=== PATIENT | female | born 1965 | race Caucasian/White ===

== ENCOUNTER 2023-10-22 10:30 | Day surgery (SDC) | payer OTHER ==
[~2023-10-22] VITALS: Wt 75.9 kg
[~2023-10-22 10:30] MED LIST: ADDERALL 5 MG TA5 MG PO; IBLOOD GLUCOSE TEST STRIP 1 EA TEST VI PRN; LACTATED RINGER'S 1,000 ML IV SCH; LIDOCAINE HCL 1% 5 ML SDV INJ ONE; SYNTHROID25 MCG PO
[2023-10-22 10:48] VITALS: BP 105/61
[2023-10-22 11:27] LABS: BASOPHILS 0.4 % (0-2); EOSINOPHILS 1.1 % (0-6); HEMATOCRIT 25.4 % (35.0-50.0); HEMOGLOBIN 8.5 g/dL (12.0-18.0); LYMPHOCYTES 36.5 % (24-44); MCH 30.2 (27-36); MCHC 33.6 g/dl (30-36); MCV 90.1 fl (81-99); PLATELET COUNT 216 K/uL (140-440); RBC 2.82 M/ul (4.3-5.7); RDW 19.6 (10.5-15.0)
[2023-10-22] MEDS ORDERED: LIDOCAINE HCL 2% 5 ML SDV ONE (11:50)
[2023-10-22] MEDS ORDERED: propofoL 200 MG/20 ML VIAL ONE (11:50)
[2023-10-22 12:44] VITALS: BP 100/62
--- NOTE | 2023-10-22 12:51 | NUR ---
10/22/23 1251 Jaja Randall 1214 PT TO PACU IN PRONE POSITIONS, PT RESPONDS TO VERBAL STIMULI, FANNY RN AT BED WITH HARESH CUTTER TO CUT OFF PTS ERIK FUNES AT PTS REQUEST. SHE WAS NOT ABLE TO CUT IT OFF DUE TO BLADE BEING TO SHORT. 1230 PT ROLLED OVER ONTO HER BACK WITH OUT ASSIST.
--- NOTE | 2023-10-30 17:58 | PATH ---
[facility] [address] [facility] [place], [place] [address] Signed SPECIMEN(S): A BONE MARROW - LEFT CORE SPECIMEN(S): B BONE MARROW - ASPIRATION SPECIMEN(S): C FLOW CYTOMETRY, BM EDTA CLINICAL HISTORY: 58-year-old woman with Waldenstrom's macroglobulinemia. DIAGNOSIS SUMMARY: Peripheral blood - Normocytic anemia with leukopenia. - No circulating atypical lymphocytes are identified. Bone marrow biopsy and aspiration: - Hypercellular marrow, 95% with less than 1% blasts - Bone marrow essentially replaced by marked lymphocytosis with features consistent with low grade B-cell lymphoma, favor lymphoplasmacytic lymphoma. - Decreased erythroid, myeloid, and megakaryocytic lineages. - Mild reticulin fibrosis, MF-1. - See diagnostic comment. DIAGNOSTIC COMMENT: The bone marrow is essentially replaced by a lambda light chain restricted, low grade B-cell lymphoma, most consistent with lymphoplasmacytic lymphoma. A MYD88 mutation is positive supporting this impression. Pending studies include a FISH panel for low grade B-cell lymphoma and a mutation study for CXCR4. [facility] HISTORICAL SUMMARY: 58 yo female with no hematology case history in the [employer] database. She has a clinical history of Waldenstrom's macroglobulinemia. The accompanying clinical history notes a 2015 history of elevated serum IgM (3843 mg/dl) with a bone marrow abbreviated report noting a lambda restricted B-cell population, negative for CD5 and CD10 while positive for CD138 (30% of population, positive for lambda light chain). MYD88 mutation was reported as positive. A laboratory test from August 2023 is reported with an elevated serum IgM of 3946 mg/dl. This bone marrow is for re-staging. PERIPHERAL BLOOD: HEMOGRAM (04/23/2023): WBC 2.6 K/ul, RBC 2.82 M/ul, HGB 8.5 g/dl, HCT 25.4%, MCV 90.1 fl, MCH 30.2 pg, MCHC 33.6 g/dl, RDW 19.6%, PLT 216 K/ul, MPV 6.3 fl. PATIENT NAME: MANDI OWENS PATHOLOGY DATE OF : 63 REPORT #: [id number] PHYSICIAN: DINA ARAUJO PCP: ROBERTO AVILA REPORT IS CONFIDENTIAL AND NOT TO BE RELEASED WITHOUT AUTHORIZATION [facility] [address] [place], [place] [address] Signed AUTOMATED DIFFERENTIAL COUNT: Neutrophils 54.0%, lymphocytes 36.5%, monocytes 8.0%, eosinophils 1.1%, basophils 0.4%. The red blood cells are normocytic and normochromic with minimal aniso-poikilocytosis. The neutrophils are unremarkable. Lymphocytes are composed of small mature appearing forms. Platelets appear normal in number and morphology with no platelet clumping or RBC microangiopathic effect identified. No blasts are identified. BONE MARROW: ASPIRATE SMEARS/TOUCH IMPRINT: The aspirate smears are hemodilute with no marrow spicules and are inadequate for evaluation. No touch prep smears are present. A differential based on a core biopsy section reveals 95% lymphocytes and 5% mixed neutrophils and erythroid cells. Sparse megakaryocytes are noted. BONE MARROW CORE BIOPSY/ASPIRATE CLOT/CELL BLOCK: The aspirate clot section is composed of blood only. The core biopsy is adequate for evaluation. The core biopsy demonstrates unremarkable trabecular bone. The cellularity is increased for age, estimated at 95%. The cellularity is primarily composed of small mature appearing lymphocytes. The rare erythroid precursors are within normal limits with essentially unremarkable maturation. The very rare myeloid precursors are unremarkable with no significant dyspoiesis. Blasts are not increased. Megakaryocytes are very sparse in numbers. No granulomas or foreign malignant cells are detected. SPECIAL STAINS (with adequate controls): - iron (aspirate smear): No marrow spicules are present for evaluation of marrow iron stores. - iron (cell block): No marrow spicules are present for evaluation of marrow iron stores. - reticulin (block A1): Mild reticulin fibrosis, MF-1 IMMUNOHISTOCHEMISTRY STAINS (performed on block A1 with adequate controls). - PAX5: Diffuse positive. - CD20: Diffuse positive - CD3: scattered 5% marking. - CD5: scattered 5% marking. - CD10: Negative. - Cyclin D: Negative - CD30: Negative - BCL2: Diffuse positive. FLOW CYTOMETRY: PATIENT NAME: MANDI OWENS PATHOLOGY DATE OF : 63 REPORT #: [id number] PHYSICIAN: DINA PATHOLOGY PCP: ROBERTO AVILA REPORT IS CONFIDENTIAL AND NOT TO BE RELEASED WITHOUT AUTHORIZATION [facility] [address] [place], [place] [address] Signed Bone marrow, flow cytometry: - CD5 negative, CD10 negative, lambda restricted B-cell lymphoproliferative disorder. - See comment. COMMENT: 36% of all gated cells are lambda restricted B-cells. These B-cells are positive for CD19, CD20 (dim), CD22, CD123, and CD200. There is no significant expression of CD5, CD10, CD23, CD11c, CD25, or CD103. This pattern of marking is consistent with the patient's prior history of Lymphoplasmacytic lymphoma (Waldenstrom's). The plasma cell gate notes a small population 0.2%, of lambda restricted plasma cells positive for CD138 and CD19 with no expression of CD20 or CD56. Correlation with bone marrow finding is needed. In addition, there is a second atypical B-cell population occupying approximately 3% of the overall population. This B-cell population is positive for CD19, CD20 (dim), and CD5 (dim) with moderate kappa light chain restriction. This likely represents a separate monoclonal B-cell lymphocytosis. Blasts are not increased. The myeloid and monocyte irvin are unremarkable. FLOW CYTOMETRY ANALYSIS: FLOW DIFFERENTIAL (% Total CD45 vs. SSC gating): Myeloid 29%; Lymphoid 59%; Monocyte 2%; Dim CD45/Blast: 0.1%. Cell Count: 1.8 x 10*3/uL. POPULATION ANALYSIS: BLASTS: Analysis of the dim CD45 gate demonstrates 0.1% myeloblasts by CD34/CD117 and 0.1% hematogones. LYMPHOID CELLS: The lymphocyte gate comprises 59% of total events and includes 21% T-cells with a CD4:CD8 ratio of 1.8:1 and normal reyes T-cell antigen expression. Two distinct B-cell populations are detected. The first, 1) is comprised of lambda-restricted B-cells (61% of lymphocytes, 36% of total events) expressing CD45 MOD, CD19 MOD, CD20 DIM, LAMBDA MOD, CD138 DIM-MOD, CD22 DIM, CD123 DIM, and CD200 DIM (partial) while negative for CD5, CD10, CD23, CD38, CD56, CD11c, CD25, CD103, and CD2. The second, 2) is comprised of kappa-restricted B-cells (5% of lymphocytes, 3% of total events) expressing CD45 MOD, CD19 MOD, CD20 DIM, CD5 DIM, KAPPA MOD, CD22 DIM, CD200 DIM (partial), and CD123 DIM (subset NEG) while negative for CD10, CD23, CD38, CD138, CD56, CD11c, CD25, CD103, CD138, CD56, CD11c, CD25, CD103, and CD2. The remainders are NK-cells. MYELOID CELLS: The myeloid population comprises 29% of the total events. PATIENT NAME: MANDI OWENS PATHOLOGY DATE OF : 63 REPORT #: [id number] PHYSICIAN: DINA ARAUJO PCP: ROBERTO AVILA REPORT IS CONFIDENTIAL AND NOT TO BE RELEASED WITHOUT AUTHORIZATION [facility] [address] [place], [place] [address] Signed Changes suggestive of hemodilution are observed. MONOCYTES: The monocyte population comprises 2% of the total events. Monocytes are not increased. No aberrant immunophenotypic expression is detected. PLASMA CELLS: A clinical history of lymphoplasmacytic lymphoma is noted. For this reason, select additional antibodies are run to further characterize the plasma cells. 0.2% clambda-restricted plasma cells are detected (n=36) expressing CD45 DIM, CD38 MOD, CD138 DIM, CD19 (variable), and cLAMBDA BR while negative for CD20 and CD56. Initial Antibodies Used: KAPPA, LAMBDA, CD20, CD10, CD19, CD23, CD38, CD16, CD56, CD8, CD5, CD2, CD4, CD7, CD3, CD14, CD33, CD13, HLADR, CD34, CD117, CD15, CD45. Additional Antibodies (necessary for further classification of the B-lymphocytes): CD103, CD11c, CD25, CD22, CD123. Additional Antibodies (necessary for further plasma cell analysis): ckappa, clambda, CD138. Total Antibodies Used: 31. JNB FINAL DIAGNOSIS PERFORMED BY: Lopez Olsen MD, Oct 24 2023 12:14PM FISH ANALYSIS: A FISH panel for low grade B-cell lymphoma is pending. MOLECULAR / PCR: A PCR test for CXCR4 is pending. 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 MYD88 is rarely mutated in the germinal center B-cell-like (GCB) DLBL, therefore, it can be used to differentiate between the two subtypes. MYD88 mutation is detected in approximately 90% of cases of Waldenstrom macroglobulinemia/lymphoplasmacytic lymphoma. MYD88 mutation analysis can be a useful prognostic tool for patients with IgM-MGUS since the L265P mutation is associated with a higher risk of disease progression and a greater disease burden. MYD88 mutation has also been reported to be common (40%) in central nervous system lymphoma. Methodology: DNA was extracted from cells or paraffin-embedded tissues (FFPE). PATIENT NAME: MANDI OWENS PATHOLOGY DATE OF : 63 REPORT #: [id number] PHYSICIAN: DINA ARAUJO PCP: ROBERTO AVILA REPORT IS CONFIDENTIAL AND NOT TO BE RELEASED WITHOUT AUTHORIZATION [address] [address] Signed Bi-directional Emily sequencing of the L265P mutation in exon 5 of MYD88 was performed. This is a high sensitivity sequencing-based assay using enrichment of mutant allele and negative selection of wild type by locked nucleic acid ([employer]). The assay has a sensitivity of 0.5% for detecting the L265P mutation in a wild-type background. Various factors including quantity and quality of nucleic acid, sample preparation, and sample age can affect assay performance. References: 1. Radha SP, Volodymyr L, Misael ML, Floyd C, et al. Genomic Landscape of Waldenstrom Macroglobulinemia and Its Impact on Treatment Strategies. J Clin Oncol. 2020;38(11):3319-1623. PMID: 83781702. 2. Delia X, Judith W, Benito Q,et al. MYD88 L265P Mutation in Lymphoid Malignancies. Cancer Res. 2018;78(10):1626-3949. PMID: 45755316. Test/Panel [facility] AMA CPT MYD88 Mutation Analysis [id number] The Accessioning Component, Technical Component Processing and Professional Component of this test was completed at [facility], [address] [place] [address] / [address] / [phone] / CLIA # [id number] / University Relations Recruiter(s): Brown Landeros M.D. The Technical Component Analysis of this test was completed at [facility], [address] [place] [address], [address], [place], [place] / [address] / [phone] / CLIA # [id number] / University Relations Recruiter(s): Lindy Helm M.D. Interpretation Code(s): [id number] (Accession/CaseNo: [id number]) The performance characteristics of this test have been determined by [facility]. This test has not been approved by the FDA. The FDA has determined such clearance or approval is not necessary. This laboratory is CLIA certified to perform high complexity clinical testing. Images that may be included within this report are retail field representative of the patient but not all testing in its entirety and should not be used to render a result. The CPT codes provided with our test descriptions are based on [employer] and AMA guidelines and are for informational purposes only. Correct CPT coding is the sole responsibility of the billing constitution party. Please direct any questions regarding coding to the payer being billed. GROSS DESCRIPTION: Two specimens are received in two containers PATIENT NAME: MANDI OWENS PATHOLOGY DATE OF : 63 REPORT #: [id number] PHYSICIAN: DINA ARAUJO PCP: ROBERTO AVILA REPORT IS CONFIDENTIAL AND NOT TO BE RELEASED WITHOUT AUTHORIZATION [facility] [address] [place], [place] [address] Signed A. The specimen, labeled and designated "Manoj, bone marrow biopsy," is received in formalin and consists of one pond cylindrical core of bone that is 1.5 cm long and 0.2 cm in diameter. After decalcification in Immunocal the specimen is entirely submitted in (A1). B. The specimen, labeled and designated "Manoj, bone marrow clot," is received in formalin and consists of a 2.2 x 0.8 x 0.7 cm aggregate of red brown clot material. Entirely submitted in (B1). JS (under the direct supervision of a pathologist) The Gross Description was prepared using a voice recognition system. The report was reviewed for accuracy; however, sound-alike word errors, addition and/or deletions may occur. If there is any question about this report, please contact Client Services. ADDITIONAL NOTES: Immunohistochemical and/or in situ hybridization studies if performed in this case included appropriate positive controls that reacted as expected. This test was developed and its performance characteristics determined by [facility]. It has not been cleared or approved by the U.S. Food and Drug Administration. The FDA has determined that such clearance or approval is not necessary. This test is used for clinical purposes. It should not be regarded as investigational or for research. [facility] is certified under the Clinical Laboratory Improvement Amendments of 1988 (CLIA) as qualified to perform high complexity clinical laboratory testing. In this case, certain antibodies were performed by both immunohistochemistry and flow cytometry analysis because flow cytometry analysis did not fully explain all the light microscopic findings. Immunohistochemistry aided in the analysis. Both methods are deemed medically necessary in this case. This test was developed and its performance characteristics determined by [facility]. It has not been cleared or approved by the US Food and Drug Administration. The FDA does not require this test to go through premarket FDA review. This test is used for clinical purposes. It should not be regarded as investigational or for research. This laboratory is certified under the Clinical Laboratory Improvement Amendments (CLIA) as qualified to perform high complexity clinical laboratory testing. PERFORMING LABORATORY: The technical preparation was performed by [facility] [address] PATIENT NAME: MANDI OWENS PATHOLOGY DATE OF : 63 REPORT #: [id number] PHYSICIAN: DINA ARAUJO PCP: ROBERTO AVILA REPORT IS CONFIDENTIAL AND NOT TO BE RELEASED WITHOUT AUTHORIZATION [facility] [address] [place] [address] [place] [address] (CLIA#: [id number]). Professional interpretation was performed by [facility], [address] [place] [phone] (CLIA#: [id number]). Technical component was performed by [facility], [address] [place] [id number] (CLIA# [id number]). Professional interpretation was performed by [facility], [address] [place] [phone] (CLIA#: [id number]). IMAGES: [id number]: [id number]: [id number] Diagnostician: Lopez Olsen MD Pathologist Electronically Signed 10/30/2023 Copies: ~ PATIENT NAME: MANDI OWENS PATHOLOGY DATE OF : 63 REPORT #: [id number] PHYSICIAN: DINA PATHOLOGY PCP: ROBERTO AVILA REPORT IS CONFIDENTIAL AND NOT TO BE RELEASED WITHOUT AUTHORIZATION
== END 2023-10-22 12:55 | disposition home or self-care (01) ==
LOC: DS 10:30
PROVIDERS: ATTEND Specialist
PROC: 079T3ZX Drainage of Bone Marrow, Percutaneous Approach, Diagnostic (ICD-10-PCS; 2023-10-22)
PROC: 07DR3ZX Extraction of Iliac Bone Marrow, Percutaneous Approach, Diagnostic (ICD-10-PCS; principal; 2023-10-22 12:00)
DX: C88.0 Waldenstrom macroglobulinemia (principal); B02.9 Zoster without complications; D64.9 Anemia, unspecified; D72.819 Decreased white blood cell count, unspecified; Z79.899 Other long term (current) drug therapy
CPT/HCPCS: 01112; 36415; 85025; J2001; J2704; J7121